=== PATIENT | male | born 1955 | race Caucasian/White ===

== ENCOUNTER → 2016-06-08 | Outpatient (CLI) | payer BC ==
[~2016-06-08] MED LIST: METH-589 PO; SIMV20TA2 PO
[2016-06-08 15:01] LABS: BLOOD UREA NITROGEN 27 mg/dl (7-18); BUN/CREATININE RATIO 27.1 (10-20); CALCIUM 9.1 mg/dl (8.5-10.1); CARBON DIOXIDE 26 mmol/L (21-32); CHLORIDE 108 mmol/L (98-107); GLUCOSE 90 mg/dl (70-99); POTASSIUM 4.2 mmol/L (3.5-5.1); SODIUM 142 mmol/L (136-145)
[2016-06-08 15:12] LABS: CHOLESTEROL 158 mg/dl (0-200); CHOLESTEROL/HDL RATIO 3.3; HDL CHOLESTEROL 48 mg/dl; TRIGLYCERIDES 124 mg/dl (0-150); VERY LOW DENSITY LIPOPROT CALC 25 mg/dl
== END | disposition home or self-care (01) ==
LOC: C.LABSPEC 13:29
PROVIDERS: ATTEND Internal Medicine
DX: E04.2 Nontoxic multinodular goiter (principal); E05.90 Thyrotoxicosis, unspecified without thyrotoxic crisis or storm; E78.5 Hyperlipidemia, unspecified

== ENCOUNTER → 2016-08-27 | Outpatient (CLI) | payer BC ==
[2016-08-27 18:04] LABS: BASO % 0.3 %; BASO ABS # 0.02 K/uL (0-0.2); COMPLETE YES; EOS % 1.3 %; HEMATOCRIT 46.8 % (42-52); IG% 0.7 %; LYMPH % 24.7 %; LYMPH ABS # 1.76 K/uL (1.2-3.4); MEAN CELL VOLUME 96.1 fL (80-100); MEAN CORPUSCULAR HEMOGLOBIN 32.9 pg (25-34); MEAN CORPUSCULAR HGB CONC 34.2 g/dl (32-36); MEAN PLATELET VOLUME 10.8 fL (7.4-10.4); MONO % 10.2 %; NEUT % 62.8 %; PLATELET COUNT 180 K/uL (130-400); RED BLOOD COUNT 4.87 M/uL (4.7-6.1); WHITE BLOOD COUNT 7.13 K/uL (4.8-10.8)
[2016-08-27 18:14] LABS: ALT/SGPT 29 U/L (12-78); BLOOD UREA NITROGEN 18 mg/dl (7-18); BUN/CREATININE RATIO 18.4 (10-20); CALCIUM 8.9 mg/dl (8.5-10.1); CARBON DIOXIDE 29 mmol/L (21-32); CHLORIDE 104 mmol/L (98-107); GLUCOSE 81 mg/dl (70-99); POTASSIUM 4.3 mmol/L (3.5-5.1); SODIUM 141 mmol/L (136-145)
[2016-08-27 18:22] LABS: T3 TOTAL 1.31 ng/ml (0.60-1.81); THYROXINE (T4) 8.5 mcg/dl (4.5-10.9)
[2016-08-27 18:24] LABS: ALB/GLOB RATIO 1.3 (0.9-2); ALKALINE PHOSPHATASE 64 U/L (45-117); AST/SGOT 22 U/L (15-37)
== END | disposition home or self-care (01) ==
LOC: C.LABSPEC 17:19
PROVIDERS: ATTEND Internal Medicine
DX: E03.9 Hypothyroidism, unspecified (principal); E04.2 Nontoxic multinodular goiter

== ENCOUNTER → 2016-09-03 | Outpatient (CLI) | payer BC ==
--- NOTE | 2016-09-03 12:53 | DIAGNOSTIC IMAGING REPORT ---
THYROID ULTRASOUND HISTORY: MULTINODULAR THYROID COMPARISON: Thyroid ultrasound 05/20/2014. FINDINGS: Right lobe: 9.3 x 4.0 x 4.8 cm. Diffusely heterogeneous. This results in difficult evaluation for a distinct nodule. There may be a few large nodules which are similar. No change in the focal coarse calcification within the right thyroid lobe. Left lobe: 10.2 x 4.0 6.8 cm. Diffusely heterogeneous. This results in difficult evaluation for a distinct nodule. There may be a few large nodules which are similar. Isthmus: 1.8 cm in thickness. Heterogeneous. IMPRESSION: Continued overall increase in size of the thyroid gland . The thyroid gland remains diffusely heterogeneous which results in difficult evaluation for distinct nodule. There may be a few large nodules which appears similar. Stable focal coarse calcification within the right thyroid lobe. Electronically signed by: Daljit Peck M.D. 09/03/2016 12:51 PM Dictated Date/Time: 09/03/2016 12:49 PM
== END | disposition home or self-care (01) ==
LOC: C.ULTR 12:07
PROVIDERS: ATTEND Internal Medicine
DX: E04.2 Nontoxic multinodular goiter (principal)

== ENCOUNTER → 2016-11-25 | Outpatient (CLI) | payer BC ==
[2016-11-25 13:34] LABS: BLOOD UREA NITROGEN 21 mg/dl (7-18); BUN/CREATININE RATIO 20.8 (10-20); CALCIUM 9.2 mg/dl (8.5-10.1); CARBON DIOXIDE 27 mmol/L (21-32); CHLORIDE 107 mmol/L (98-107); CHOLESTEROL 158 mg/dl (0-200); GLUCOSE 89 mg/dl (70-99); POTASSIUM 4.5 mmol/L (3.5-5.1); SODIUM 139 mmol/L (136-145); TRIGLYCERIDES 150 mg/dl (0-150); VERY LOW DENSITY LIPOPROT CALC 30 mg/dl
[2016-11-25 13:49] LABS: CHOLESTEROL/HDL RATIO 3.9; HDL CHOLESTEROL 41 mg/dl
== END | disposition home or self-care (01) ==
LOC: C.LABSPEC 10:00
PROVIDERS: ATTEND Internal Medicine
DX: Z00.00 Encounter for general adult medical examination without abnormal findings (principal); E78.5 Hyperlipidemia, unspecified; E66.09 Other obesity due to excess calories; E05.90 Thyrotoxicosis, unspecified without thyrotoxic crisis or storm

== ENCOUNTER → 2016-12-13 | Outpatient (CLI) | payer BC ==
[~2016-12-13] MED LIST changes: +OPTIRAY 320 IV PRN
--- NOTE | 2016-12-13 14:08 | DIAGNOSTIC IMAGING REPORT ---
SOFT TISSUE NECK WITH CLINICAL HISTORY: 61 years-old Male presenting with enlarging thyroid gland, multiple thyroid nodules. TECHNIQUE: Multidetector CT of the neck was performed after the administration of intravenous contrast. IV contrast: 93 mL of Optiray 320. A dose lowering technique was used consistent with the principles of ALARA (as low as reasonably achievable). COMPARISON: Ultrasound from 09/03/2016. CT DOSE (mGy.cm): The estimated cumulative dose is 577.24 mGy.cm. FINDINGS: [facility] Expert topogram: Unremarkable. Limited intracranial evaluation unremarkable. Orbits normal. Atherosclerosis of the bilateral carotid arteries with less than 50% luminal stenosis at the carotid bulbs/proximal internal carotid arteries. Parotid and submandibular glands normal. Marked enlargement of the thyroid gland. A 2 cm nodule is noted in the right lobe with coarse/dystrophic calcification. Otherwise the gland has a diffusely multinodular appearance. Slight mass effect on the upper trachea and upper esophagus. No cervical lymphadenopathy. Paranasal sinuses and mastoid air cells clear. Multilevel degenerative changes of the cervical spine. No suspicious nodular mass in the nasopharynx, oral cavity, oropharynx, hypopharynx, larynx. Moderate and preepiglottic fat preserved. Lung apices clear. IMPRESSION: 1. Diffusely enlarged thyroid with nodular architecture most consistent with multinodular goiter. Associated mass effect on the upper trachea and esophagus. 2. Less than 50% luminal stenosis of the bilateral lateral carotid bulb/proximal internal carotid artery secondary to atherosclerotic plaque. Electronically signed by: Tim Alcantara M.D. 12/13/2016 2:07 PM Dictated Date/Time: 12/13/2016 1:58 PM
== END | disposition home or self-care (01) ==
LOC: C.CTS 13:16
PROVIDERS: ATTEND Internal Medicine
DX: E04.2 Nontoxic multinodular goiter (principal); R49.0 Dysphonia; I65.23 Occlusion and stenosis of bilateral carotid arteries

== ENCOUNTER → 2017-03-16 | Outpatient (CLI) | payer BC ==
[~2017-03-16] MED LIST changes: -OPTIRAY 320 IV PRN
== END | disposition home or self-care (01) ==
LOC: C.LABSPEC 14:50
PROVIDERS: ATTEND Internal Medicine
DX: E04.1 Nontoxic single thyroid nodule (principal)

== ENCOUNTER → 2017-06-01 | Outpatient (CLI) | payer BC ==
[2017-06-01 13:33] LABS: BLOOD UREA NITROGEN 25 mg/dl (7-18); CALCIUM 8.8 mg/dl (8.5-10.1); CARBON DIOXIDE 26 mmol/L (21-32); CHOLESTEROL 139 mg/dl (0-200); CREATININE 0.89 mg/dl (0.60-1.40); GLUCOSE 86 mg/dl (70-99); POTASSIUM 4.1 mmol/L (3.5-5.1); SODIUM 139 mmol/L (136-145)
[2017-06-01 13:49] LABS: LDL CHOLESTEROL (DIRECT) 91 mg/dl
== END | disposition home or self-care (01) ==
LOC: C.LABSPEC 12:07
PROVIDERS: ATTEND Internal Medicine
DX: E05.90 Thyrotoxicosis, unspecified without thyrotoxic crisis or storm (principal); E78.5 Hyperlipidemia, unspecified

== ENCOUNTER → 2017-06-13 | Outpatient (CLI) | payer BC, OTHER ==
--- NOTE | 2017-06-13 08:18 | DIAGNOSTIC IMAGING REPORT ---
(BARIUM SWALLOW) ESOPHAGUS CLINICAL HISTORY: Dysphagia. COMPARISON STUDY: Barium swallow July 20, 2007. FLUOROSCOPY TIME: 1 minute. FINDINGS: 23 fluoroscopic images demonstrate mild esophageal dysmotility. No esophageal mass is identified. A small hiatal hernia with distal esophageal ring is similar in appearance to exam of July 20, 2007. A 13 mm barium tablet passed freely into the stomach. Surgical clip within the neck from thyroidectomy are noted. No reflux was elicited. IMPRESSION: 1. Mild esophageal dysmotility. 2. Small hiatal hernia with distal esophageal ring which is similar in appearance to exam of July 20, 2007. 13 mm barium tablet passed freely into the stomach. Electronically signed by: Donald Coburn M.D. 06/13/2017 8:16 AM Dictated Date/Time: 06/13/2017 8:14 AM
== END | disposition home or self-care (01) ==
LOC: C.RAD 07:38
PROVIDERS: ATTEND Internal Medicine
DX: R13.10 Dysphagia, unspecified (principal)